=== PATIENT | female | born 1980 | race Asian ===

== ENCOUNTER → 2018-05-22 10:08 | Outpatient (CLI) | payer BC | END | disposition home or self-care (01) | LOC: D.CT 08:00 | DX: R51 Headache (principal) ==

== ENCOUNTER → 2019-10-10 07:44 | Outpatient (CLI) | payer BC | END | disposition home or self-care (01) | LOC: D.CT 07:44 | PROVIDERS: ATTEND Family Medicine | DX: R79.1 Abnormal coagulation profile (principal) ==